=== PATIENT | male | born 1980 | race Caucasian/White ===

== ENCOUNTER → 2021-06-26 | Outpatient (CLI) | payer OTHER ==
[2014-10-02 16:00] VITALS: BP 136/75
--- NOTE | 2021-06-26 10:17 | RAD ---
EXAM: Abdomen sonogram. HISTORY: Jaundice. TECHNIQUE: Sonographic imaging of the abdomen was performed. COMPARISON: None. FINDINGS: The liver is enlarged. There is hepatic steatosis. There is coarse hepatic echotexture and surface nodularity likely due to cirrhosis. The common bile duct is obscured. There is severe gallbla dder wall thickening. The right kidney is unremarkable. The pancreas is obscured due to bowel gas. Th e inferior vena cava is patent. There is a small amount of abdominal ascites. IMPRESSION: 1. Hepatomegaly, hepatic steatosis and hepatic cirrhosis. No focal hepatic lesion is seen sonographic ally. 2. Gallbladder wall thickening. This can be due to intrinsic liver disease and the presence of ascite s. Cholecystitis can be considered in the appropriate clinical setting. Correlate with symptomatology . 3. Small ascites. Electronically signed by: Rebeka Garcia MD (06/26/2021 10:15 AM) [id number]
== END ==
LOC: US 09:27
PROVIDERS: ATTEND Internal Medicine
DX: R16.0 Hepatomegaly, not elsewhere classified (principal); R17 Unspecified jaundice; K74.60 Unspecified cirrhosis of liver; F10.230 Alcohol dependence with withdrawal, uncomplicated; K76.0 Fatty (change of) liver, not elsewhere classified; R18.8 Other ascites
CPT/HCPCS: 76705